=== PATIENT | male | born 1955 | race Caucasian/White ===

== ENCOUNTER 2017-01-13 04:24 | Emergency (ER) | payer OTHER ==
[2017-01-13] MEDS ORDERED: Silver Sulfadiazine 1% 400gm* 1 APPLIC JAR TOPICAL ONE (04:39)
[2017-01-13] MEDS ORDERED: Metoprolol Tartrate IV* 1 MG/ML 5 ML VIAL IV ONE (04:57)
[2017-01-13] MEDS ORDERED: Morphine INJ* 4 MG/ML 1 ML SYRINGE IV ONE (04:57)
[2017-01-13 05:00] LABS: Hematocrit 49 % (42-52); Mean Corpuscular HGB Conc 33 g/dl (31-36); Mean Corpuscular Hemoglobin 31 pg (27-31); Mean Corpuscular Volume 94 fL (80-94); Mean Platelet Volume 8 um3 (7.4-10.4); Red Blood Count 5.14 10^6/ul (4.0-5.4); Red Cell Distribution Width 14 % (10.5-15); White Blood Count 9.5 10^3/ul (3.5-10.8)
[2017-01-13 05:13] LABS: Albumin 4.5 g/dL (3.2-5.2); Calcium 10.4 mg/dL (8.6-10.3); EGFR African American 120.3 (>60); EGFR Non-African American 93.5 (>60); Globulin 3.2 g/dL (2-4); Magnesium 2.1 mg/dL (1.9-2.7); Potassium 3.8 mmol/L (3.5-5.0); Total Bilirubin 0.6 mg/dL (0.2-1.0); Total Protein 7.7 g/dL (6.4-8.9)
[2017-01-13] MEDS ORDERED: NS 0.9% 1000 ML* 1,000 ML IV ONE (05:18)
[2017-01-13 05:47] LABS: TSH (Thyroid Stimulating Horm) 2.11 mcIU/mL (0.34-5.60)
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
[2017-01-13 06:35] VITALS: BP 131/102
== END 2017-01-13 07:01 | disposition short-term general hospital (02) ==
LOC: ED 04:24
DX: T24.011A Burn of unspecified degree of right thigh, initial encounter (principal); T31.11 Burns involving 10-19% of body surface with 10-19% third degree burns; R06.02 Shortness of breath; F17.210 Nicotine dependence, cigarettes, uncomplicated; X08.8XXA Exposure to other specified smoke, fire and flames, initial encounter; Y93.9 Activity, unspecified; Y92.9 Unspecified place or not applicable
CPT/HCPCS: 36415; 80053; 83605; 83735; 84443; 84484; 85025; 85610; 93005; 96374; 96375; 99283; A9270-GY; J2270

== ENCOUNTER 2019-08-07 13:33 | Emergency (ER) | payer OTHER ==
[2019-08-07] MEDS ORDERED: NS 0.9% 1000 ML** 1,000 ML IV ONE (14:07)
[2019-08-07 14:27] LABS: ABS Lymphocytes 0.4 10^3/ul (1.0-4.8); ABS Monocytes 0.4 10^3/ul (0-0.8); ABS Neutrophils 5.8 10^3/ul (1.5-7.7); Hematocrit 44 % (42-52); Hemoglobin 14.9 g/dL (14.0-18.0); Lymphocyte % 5.4 %; Mean Corpuscular HGB Conc 34 g/dL (31-36); Mean Corpuscular Hemoglobin 32 pg (27-31); Mean Corpuscular Volume 92 fL (80-94); Platelet Count 154 10^3/uL (150-450); Red Blood Count 4.72 10^6 /uL (4.18-5.48); Red Cell Distribution Width 13 % (10-15); White Blood Count 6.6 10^3/uL (3.5-10.8)
[2019-08-07 14:46] LABS: Troponin I 0.01 ng/mL (<0.03)
[2019-08-07 14:50] LABS: Albumin 3.8 g/dL (3.2-5.2); Albumin/Globulin Ratio 1.3 (1-3); BUN/Creatinine Ratio 20.9 (8-20); Calcium 8.5 mg/dL (8.6-10.3); EGFR African American 109.4 (>60); EGFR Non-African American 90.4 (>60); Total Bilirubin 0.4 mg/dL (0.2-1.0); Total Protein 6.8 g/dL (6.4-8.9)
--- NOTE | 2019-08-07 15:19 | ED ---
Influenza-Like Illness - HPI Summary HPI Summary: Patient is a 63 y/o M presenting to [facility] with complaints of cough, congestion, rib pain with cough, sore throat, N/V, fever, and a syncopal episode. He states that a persistent cough onset 08/03/19. Patient states that he then began to experience congestion at his chest and also reports pain at his ribs with cough. He reports that he has not been able to keep food or liquids down secondary to N/V. Patient went to [facility] for evaluation earlier today 08/07/19. He was told that he had a fever and had a syncopal episode while there. Staff were able to catch the patient. He denies [place]. Patient has not had a flu shot yet. No Hx of HTN or diabetes noted. Patient states that he takes a daily vitamin. He received anti-emetic and Tylenol at [facility]. NKDA reported. He is a former smoker and notes occasional marijuana usage. - History of Current Complaint Chief Complaint: EDFluSymptoms Time Seen by Provider: 08/07/19 13:55 Hx Obtained From: Patient Onset/Duration: Lasting Days, Still Present Severity: Mild Associated Signs & Symptoms: Fever, Cough, Sore Throat, Vomiting - Allergy/Home Medications Allergies/Adverse Reactions: Allergies Allergy/AdvReac Type Severity Reaction Status Date / Time No Known Allergies Allergy Verified 03/28/14 08:43 Home Medications: Home Medications Aspirin EC TAB* [Ecotrin EC Low Dose 81 MG*] 81 mg PO DAILY 08/07/19 [History Confirmed 08/07/19] Cyanocobalamin TAB* [Vitamin B12 TAB*] 500 mcg PO DAILY 08/07/19 [History Confirmed 08/07/19] Multivitamins/Minerals TAB* [Theragran/minerals TAB*] 1 tab PO DAILY 08/07/19 [ History Confirmed 08/07/19] PMH/Surg Hx/FS Hx/Imm Hx Endocrine/Hematology History: Denies: Hx Diabetes, Hx Thyroid Disease Cardiovascular History: Denies: Hx Hypertension Respiratory History: Denies: Hx Asthma, Hx Chronic Obstructive Pulmonary Disease (COPD) GI History: Denies: Hx Ulcer - Surgical History Surgery Procedure, Year, and Place: hernia 4 yrs ago. ACL long ago ~1997 Infectious Disease History: No Infectious Disease History: Denies: Hx Hepatitis, Hx Human Immunodeficiency Virus (HIV), History Other Infectious Disease, Traveled Outside the [place] in Last 30 Days - Family History Known Family History: Positive: Cardiac Disease, Other - [place]. - Social History Alcohol Use: Weekly Alcohol Amount: 5x Hx Substance Use: No Substance Use Type: Reports: Marijuana Substance Use Comment - Amount & Last Used: 5x Hx Tobacco Use: Yes Smoking Status (MU): Former Smoker Amount Used/How Often: 1 ppd Review of Systems Positive: Fever - reported Positive: Sore Throat Respiratory: Other - positive - congestion Positive: Cough Positive: Vomiting, Nausea Musculoskeletal: Other - positive - rib pain with cough Positive: Syncope. Negative: Headache All Other Systems Reviewed And Are Negative: Yes Physical Exam - Summary Physical Exam Summary: Constitutional: Well-developed, Well-nourished, Alert. (-) Distressed Skin: Warm, Dry HENT: Normocephalic; Atraumatic Eyes: Conjunctiva normal Neck: Musculoskeletal ROM normal neck. (-) JVD, (-) Stridor, (-) Tracheal deviation Cardio: Rhythm regular, rate normal, Heart sounds normal; Intact distal pulses; Radial pulses are 2+ and symmetric. (-) Murmur Pulmonary/Chest wall: 92% o2 saturation on 2 liters of oxygen. Effort normal. (- ) Respiratory distress, (-) Wheezes, (-) Rales Abd: Soft, (-) tenderness, (-) Distension, (-) Guarding, (-) Rebound Musculoskeletal: (-) Edema Lymph: (-) Cervical adenopathy Neuro: Alert, Oriented x3 Psych: Mood and affect Normal Triage Information Reviewed: Yes Vital Signs On Initial Exam: Initial Vitals Pulse Resp Pulse Ox 95 17 90 08/07/19 13:49 08/07/19 13:49 08/07/19 13:49 Vital Signs Reviewed: Yes Procedures - Sedation Patient Received Moderate/Deep Sedation with Procedure: No Diagnostics - Vital Signs Vital Signs Temp Pulse Resp BP Pulse Ox 08/07/19 15:00 88 16 92 08/07/19 14:50 89 21 115/70 92 08/07/19 14:19 89 17 124/71 93 08/07/19 14:00 95 19 91 08/07/19 13:50 99.1 F 100 14 127/71 92 08/07/19 13:49 95 17 90 - Laboratory Lab Results: Lab Results 08/07/19 08/07/19 Range/Units 14:15 14:15 WBC 6.6 (3.5-10.8) 10^3/uL RBC 4.72 (4.18-5.48) 10^6 /uL Hgb 14.9 (14.0-18.0) g/dL Hct 44 (42-52) % MCV 92 (80-94) fL MCH 32 H (27-31) pg MCHC 34 (31-36) g/dL RDW 13 (10-15) % Plt Count 154 (150-450) 10^3/uL MPV 8.0 (7.4-10.4) fL Neut % (Auto) 88.6 % Lymph % (Auto) 5.4 % [place] % (Auto) 5.8 % Eos % (Auto) 0.0 % Baso % (Auto) 0.2 % Absolute Neuts (auto) 5.8 (1.5-7.7) 10^3/ul Absolute Lymphs (auto) 0.4 L (1.0-4.8) 10^3/ul Absolute Monos (auto) 0.4 (0-0.8) 10^3/ul Absolute Eos (auto) 0.0 (0-0.6) 10^3/ul Absolute Basos (auto) 0.0 (0-0.2) 10^3/ul Absolute Nucleated RBC 0.0 10^3/ul Nucleated RBC % 0.0 Sodium 131 L (135-145) mmol/L Potassium 4.0 (3.5-5.0) mmol/L Chloride 101 (101-111) mmol/L Carbon Dioxide 23 (22-32) mmol/L Anion Gap 7 (2-11) mmol/L BUN 18 (6-24) mg/dL Creatinine 0.86 (0.67-1.17) mg/dL Est GFR ( Amer) 109.4 (>60) Est GFR (Non-Af Amer) 90.4 (>60) BUN/Creatinine Ratio 20.9 H (8-20) Glucose 117 H (70-100) mg/dL Calcium 8.5 L (8.6-10.3) mg/dL Total Bilirubin 0.40 (0.2-1.0) mg/dL AST 19 (13-39) U/L ALT 14 (7-52) U/L Alkaline Phosphatase 48 (34-104) U/L Troponin I 0.01 (<0.03) ng/mL Total Protein 6.8 (6.4-8.9) g/dL Albumin 3.8 (3.2-5.2) g/dL Globulin 3.0 (2-4) g/dL Albumin/Globulin Ratio 1.3 (1-3) Result Diagrams: 08/07/19 14:15 08/07/19 14:15 Lab Statement: Any lab studies that have been ordered have been reviewed, and results considered in the medical decision making process. - Radiology CXR Radiology Interpretation Completed By: Radiologist Summary of Radiographic Findings: IMPRESSION: No active cardiopulmonary disease is noted. This report was reviewed by ED physician. - EKG 1414 Cardiac Rate: NL - rate of 90 BPM EKG Rhythm: Sinus Rhythm Summary of EKG Findings: EKG showed NSR with rate of 90 BPM, no STEMI. ED physician has reviewed and interpreted this EKG. Re-Evaluation - Re-Evaluation First Eval Re-Evaluation Time: 15:14 Comment: Patient has an o2 saturation range of 92-94% on RA. He states that this is his baseline. Patient to be discharged to home. Flu Symptom Course/Dx - Course Course Of Treatment: Patient is here with 4 days of flulike symptoms. Patient has not been drinking due to a lack of appetite. Patient went to an urgent care where he stood up and then syncopized. Patient was febrile there and given Tylenol and Zofran with improvement in his nausea. Patient has no abdominal tenderness and is overall well-appearing. Patient had a negative chest x-ray. Given patient's syncopal episode, an EKG and troponin were ordered which were both negative for any acute abnormality. Patient is out of the window for influenza so a swab was not sent. Patient will be treated with symptomatic treatment - Diagnoses Provider Diagnoses: Influenza, Syncope, Cough Discharge ED - Sign-Out/Discharge Documenting (check all that apply): Patient Departure - discharge - Discharge Plan Condition: Stable Disposition: HOME Prescriptions: Ondansetron ODT TAB* [Zofran 4 MG Odt TAB*] 4 mg PO Q8H PRN #12 tab.odt PRN Reason: Vomiting Patient Education Materials: Syncope (ED), Influenza (ED), Acute Cough (ED) Forms: *Work Release Referrals: Wojciech Winston MD [Primary Care Provider] - Additional Instructions: Please follow up with your primary care physician within three days. Take Motrin and Tylenol for pain and fever, stay hydrated with pedialyte. Use your prescribed nausea medicine as needed. Return to ED for worsened trouble breathing, high fevers, or any other concerning symptoms. Return to work Tuesday. - Billing Disposition and Condition Condition: STABLE Disposition: Home - Attestation Statements Document Initiated by Daniel: Yes Documenting Scribe: ROSE HAYDEN Provider For Whom Daniel is Documenting (Include Credential): PAULO MORRISON MD Scribe Attestation: ROSE Anderson, scribed for PAULO MORRISON MD on 08/07/19 at 1738. Scribe Documentation Reviewed: Yes Provider Attestation: The documentation as recorded by the ROSE kline accurately reflects the service I personally performed and the decisions made by me, PAULO MORRISON MD Status of Scribe Document: Viewed
[2019-08-07 15:48] VITALS: BP 124/77
== END 2019-08-07 15:46 | disposition home or self-care (01) ==
LOC: ED 13:33
DX: J10.1 Influenza due to other identified influenza virus with other respiratory manifestations (principal); R55 Syncope and collapse; R05 Cough; R11.10 Vomiting, unspecified; Z79.82 Long term (current) use of aspirin; Z87.891 Personal history of nicotine dependence
CPT/HCPCS: 36415; 71046; 80053; 84484; 85025; 93005; 99283

== ENCOUNTER 2020-10-24 17:29 | Inpatient (IN) ==
[2020-10-24 20:53] LABS: ABS Basophils 0.1 10^3/ul (0-0.2); ABS Eosinophils 0.2 10^3/ul (0-0.6); ABS Lymphocytes 1.7 10^3/ul (1.0-4.8); ABS Monocytes 0.8 10^3/ul (0-0.8); Eosinophil % 3.2 %; Hematocrit 41 % (42-52); Hemoglobin 13.6 g/dL (14.0-18.0); Lymphocyte % 21.7 %; Mean Corpuscular HGB Conc 33 g/dL (31-36); Mean Corpuscular Hemoglobin 30 pg (27-31); Mean Corpuscular Volume 91 fL (80-94); Mean Platelet Volume 7.4 fL (7.4-10.4); Nucleated Red Blood Cells % 0.1; Platelet Count 293 10^3/uL (150-450); Red Blood Count 4.54 10^6 /uL (4.18-5.48); Red Cell Distribution Width 14 % (10-15); White Blood Count 7.8 10^3/uL (3.5-10.8)
[2020-10-24 21:10] LABS: Albumin 4.2 g/dL (3.2-5.2); Albumin/Globulin Ratio 1.2 (1-3); Calcium 10.4 mg/dL (8.6-10.3); EGFR African American 120.3 (>60); EGFR Non-African American 99.4 (>60); Globulin 3.4 g/dL (2-4); Potassium 3.7 mmol/L (3.5-5.0); Total Bilirubin 0.3 mg/dL (0.2-1.0); Total Protein 7.6 g/dL (6.4-8.9)
[2020-10-24] MEDS ORDERED: Iohexol 350 (CONTRAST) 500 ML MDV IV ONE (21:38)
[2020-10-25 03:17] LABS: Troponin I 0.01 ng/mL (<0.03)
[2020-10-25] MEDS: Enoxaparin 40 MG/0.4 ML SYR SUBCUT SCH (05:58)
[2020-10-25] MEDS: Aspirin EC 81 mg TAB.EC (enteric coated) PO SCH (09:01)
[2020-10-25 10:20] LABS: HDL Cholesterol 47.2 mg/dL
[2020-10-25] MEDS ORDERED: Albuterol HFA INHALER 8 gm MDI INH PRN (12:18)
[2020-10-25 13:44] LABS: C Reactive Protein 47.29 mg/L (<8.01)
[2020-10-25] MEDS ORDERED: Calcium Carb (TUMS) 500 mg CHEW TAB PO PRN (22:29)
[2020-10-25] MEDS ORDERED: Pantoprazole VIAL 40 MG VIAL IV ONE (22:30)
[2020-10-26] MEDS: Enoxaparin 40 MG/0.4 ML SYR SUBCUT SCH (06:04)
[2020-10-26] MEDS: Aspirin EC 81 mg TAB.EC (enteric coated) PO SCH (08:05)
[2020-10-26 15:28] VITALS: BP 127/81
== END 2020-10-26 15:50 | disposition home or self-care (01) | DRG 181 ==
LOC: ED 17:29 → MEDTELE 10-25 00:50
PROVIDERS: ADMIT Internal Medicine Interventional Cardiology; ATTEND Internal Medicine

== ENCOUNTER 2021-01-21 11:59 | Inpatient (IN) ==
[2021-01-21] MEDS ORDERED: Magnesium Sulfate IV 1GM/100ML 1 GM/100 ML BAG IV ONE (12:09)
[2021-01-21] MEDS ORDERED: Lactated Ringers 1000 ml BAG 1,000 ML IV ONE (12:09)
[2021-01-21] MEDS ORDERED: Diltiazem IV push/loading dose 5 MG/ML 5 ML vial (25 mg) IV SLOW PU ONE ×2 (12:09→12:38)
[2021-01-21 12:34] LABS: ABS Basophils 0.1 10^3/ul (0-0.2); ABS Eosinophils 0.1 10^3/ul (0-0.6); ABS Lymphocytes 1.5 10^3/ul (1.0-4.8); ABS Monocytes 0.8 10^3/ul (0-0.8); ABS Neutrophils 6.4 10^3/ul (1.5-7.7); Eosinophil % 1.6 %; Hematocrit 39 % (42-52); Hemoglobin 12.6 g/dL (14.0-18.0); Lymphocyte % 16.5 %; Mean Corpuscular HGB Conc 33 g/dL (31-36); Mean Corpuscular Hemoglobin 28 pg (27-31); Mean Corpuscular Volume 87 fL (80-94); Mean Platelet Volume 7.9 fL (7.4-10.4); Nucleated Red Blood Cells % 0.1; Platelet Count 304 10^3/uL (150-450); Red Blood Count 4.45 10^6 /uL (4.18-5.48); Red Cell Distribution Width 15 % (10-15); White Blood Count 8.8 10^3/uL (3.5-10.8)
[2021-01-21 12:48] LABS: Calcium 9.6 mg/dL (8.6-10.3); EGFR African American 119.9 (>60); EGFR Non-African American 99.1 (>60); Magnesium 2.1 mg/dL (1.9-2.7); Total Protein 7.4 g/dL (6.4-8.9)
[2021-01-21 12:49] LABS: Albumin/Globulin Ratio 1.2 (1-3); Globulin 3.4 g/dL (2-4); Total Bilirubin 0.3 mg/dL (0.2-1.0)
[2021-01-21] MEDS ORDERED: Iohexol 350 (CONTRAST) 500 ML MDV IV ONE (13:07)
[2021-01-21] MEDS ORDERED: Diltiazem (ADVAN VIAL) 100 MG/100 ML ADDV.BAG IV SCH (14:00)
[2021-01-21] MEDS ORDERED: Metoprolol Tartrate 5 mg VIAL 5 ml VIAL (1 mg/ml) IV ONE ×3 (15:07→16:41)
[2021-01-21] MEDS ORDERED: Albuterol HFA INHALER 8 gm MDI INH PRN (17:39)
[2021-01-21] MEDS ORDERED: Metoprolol Tartrate 5 mg VIAL 5 ml VIAL (1 mg/ml) IV PRN (17:41)
[2021-01-21] MEDS ORDERED: Ondansetron 4 mg VIAL 2 MG/ML 2 ml VIAL IV PRN (17:42)
[2021-01-21] MEDS ORDERED: Digoxin IV 0.5 MG/2 ML AMP (0.25 MG/ML) IV SLOW PU ONE (20:20)
[2021-01-22] MEDS ORDERED: Metoprolol Tartrate 5 mg VIAL 5 ml VIAL (1 mg/ml) IV ONE (02:04)
[2021-01-22 06:21] LABS: ABS Basophils 0.1 10^3/ul (0-0.2); ABS Eosinophils 0.2 10^3/ul (0-0.6); ABS Lymphocytes 1.5 10^3/ul (1.0-4.8); ABS Monocytes 0.6 10^3/ul (0-0.8); ABS Neutrophils 3.9 10^3/ul (1.5-7.7); Eosinophil % 3.1 %; Hematocrit 36 % (42-52); Hemoglobin 11.8 g/dL (14.0-18.0); Lymphocyte % 23.7 %; Mean Corpuscular HGB Conc 33 g/dL (31-36); Mean Corpuscular Hemoglobin 29 pg (27-31); Mean Corpuscular Volume 86 fL (80-94); Platelet Count 251 10^3/uL (150-450); Red Blood Count 4.15 10^6 /uL (4.18-5.48); Red Cell Distribution Width 14 % (10-15); White Blood Count 6.2 10^3/uL (3.5-10.8)
[2021-01-22 06:36] LABS: EGFR African American 137.8 (>60); EGFR Non-African American 113.9 (>60); Potassium 4.1 mmol/L (3.5-5.0)
[2021-01-22] MEDS ORDERED: Digoxin IV 0.5 MG/2 ML AMP (0.25 MG/ML) IV SLOW PU ONE ×2 (07:20→14:00)
[2021-01-22 13:35] LABS: Magnesium 2.2 mg/dL (1.9-2.7)
[2021-01-22] MEDS ORDERED: Amiodarone 150 mg IVPREMIX 150 MG/100 ML BAG IV ONE (18:04)
[2021-01-22] MEDS ORDERED: Amiodarone 360 MG IVPREMIX 360 MG/200 ML BAG IV ONE (18:15)
[2021-01-22] MEDS: Magic MouthWash1-BEN/MAAL/LIDO 180 ML BTL SWISH SPIT SCH ×2 (18:18→21:08)
[2021-01-23] MEDS: Amiodarone 360 MG IVPREMIX 360 MG/200 ML BAG IV SCH ×2 (01:00→09:30)
[2021-01-23 05:36] LABS: ABS Basophils 0.1 10^3/ul (0-0.2); ABS Eosinophils 0.2 10^3/ul (0-0.6); ABS Monocytes 0.6 10^3/ul (0-0.8); ABS Neutrophils 3.8 10^3/ul (1.5-7.7); Eosinophil % 3.6 %; Hematocrit 34 % (42-52); Hemoglobin 11.1 g/dL (14.0-18.0); Lymphocyte % 18.3 %; Mean Corpuscular HGB Conc 32 g/dL (31-36); Mean Corpuscular Hemoglobin 28 pg (27-31); Mean Corpuscular Volume 87 fL (80-94); Mean Platelet Volume 7.8 fL (7.4-10.4); Platelet Count 246 10^3/uL (150-450); Red Blood Count 3.94 10^6 /uL (4.18-5.48); Red Cell Distribution Width 15 % (10-15); White Blood Count 5.7 10^3/uL (3.5-10.8)
[2021-01-23 05:54] LABS: Calcium 8.8 mg/dL (8.6-10.3); EGFR African American 135.6 (>60); EGFR Non-African American 112.1 (>60); Magnesium 2.1 mg/dL (1.9-2.7); Potassium 4.2 mmol/L (3.5-5.0)
[2021-01-23 08:08] LABS: Phosphorus 3.8 mg/dL (2.5-5.0)
[2021-01-23] MEDS ORDERED: Perflutren Lipid Microsphere 3 ML VIAL ONE (08:55)
[2021-01-23] MEDS: Magic MouthWash1-BEN/MAAL/LIDO 180 ML BTL SWISH SPIT SCH ×4 (09:43→20:16)
[2021-01-23] MEDS: Amiodarone 400 mg TAB PO SCH ×2 (10:02→20:13)
[2021-01-24 06:29] LABS: Calcium 9.1 mg/dL (8.6-10.3); EGFR Non-African American 119.8 (>60); Magnesium 2.1 mg/dL (1.9-2.7); Phosphorus 3.7 mg/dL (2.5-5.0); Potassium 4.1 mmol/L (3.5-5.0)
[2021-01-24] MEDS: Amiodarone 400 mg TAB PO SCH (08:52)
[2021-01-24] MEDS: Magic MouthWash1-BEN/MAAL/LIDO 180 ML BTL SWISH SPIT SCH ×2 (08:56→13:03)
[2021-01-24 13:26] VITALS: BP 105/62
== END 2021-01-24 16:05 | disposition home or self-care (01) | DRG 308 ==
LOC: ED 11:59 → MEDTELE 18:55 → ICU 01-22 18:06 → MEDTELE 01-23 18:27
PROVIDERS: ADMIT Student in an Organized Health Care Education/Training Program; ATTEND Student in an Organized Health Care Education/Training Program

== ENCOUNTER 2021-02-10 11:50 | Observation (INO) ==
[2021-02-10 16:39] LABS: ABS Lymphocytes 0.8 10^3/ul (1.0-4.8); ABS Monocytes 0.2 10^3/ul (0-0.8); ABS Neutrophils 2.1 10^3/ul (1.5-7.7); Eosinophil % 1.5 %; Hematocrit 40 % (42-52); Hemoglobin 12.8 g/dL (14.0-18.0); Lymphocyte % 26.5 %; Mean Corpuscular HGB Conc 32 g/dL (31-36); Mean Corpuscular Hemoglobin 28 pg (27-31); Mean Corpuscular Volume 85 fL (80-94); Mean Platelet Volume 8.4 fL (7.4-10.4); Nucleated Red Blood Cells % 0.1; Platelet Count 295 10^3/uL (150-450); Red Blood Count 4.65 10^6 /uL (4.18-5.48); Red Cell Distribution Width 15 % (10-15); White Blood Count 3.1 10^3/uL (3.5-10.8)
[2021-02-10 16:52] LABS: Activated Partial Thrombo Time 31.8 seconds (26.0-38.0); INR 1.14 (0.86-1.15)
[2021-02-10 17:03] LABS: Albumin 3.8 g/dL (3.2-5.2); Albumin/Globulin Ratio 1.2 (1-3); Calcium 9.7 mg/dL (8.6-10.3); EGFR African American 81.8 (>60); EGFR Non-African American 67.6 (>60); Globulin 3.1 g/dL (2-4); Magnesium 1.7 mg/dL (1.9-2.7); Potassium 3.3 mmol/L (3.5-5.0); Total Bilirubin 0.3 mg/dL (0.2-1.0); Total Protein 6.9 g/dL (6.4-8.9)
[2021-02-10 17:04] LABS: Troponin I 0.01 ng/mL (<0.03)
[2021-02-10 17:09] LABS: Digoxin 0.4 ng/ml (0.8-2.0)
[2021-02-10] MEDS ORDERED: Iohexol 350 (CONTRAST) 500 ML MDV IV ONE (17:15)
[2021-02-10 17:19] LABS: T4, Total 11.51 mcg/dL (6.09-12.23)
[2021-02-10] MEDS ORDERED: Magnesium Sulfate IV 1GM/100ML 1 GM/100 ML BAG IV ONE (17:22)
[2021-02-10] MEDS ORDERED: Potassium Chlor 20 meq TAB.ER PO ONE (17:22)
[2021-02-10 17:23] LABS: TSH Ultra Thyroid Stim Horm 3.04 mcIU/mL (0.34-5.60)
[2021-02-10] MEDS ORDERED: Digoxin IV 0.5 MG/2 ML AMP (0.25 MG/ML) IV SLOW PU ONE (20:56)
[2021-02-10] MEDS ORDERED: Albuterol HFA INHALER 8 gm MDI INH PRN (21:54)
[2021-02-11 06:52] LABS: Calcium 9.2 mg/dL (8.6-10.3); EGFR African American 91.3 (>60); EGFR Non-African American 75.5 (>60); Potassium 3.7 mmol/L (3.5-5.0)
[2021-02-11] MEDS ORDERED: Amiodarone 400 mg TAB PO SCH (10:00)
[2021-02-11 13:14] LABS: Magnesium 1.9 mg/dL (1.9-2.7)
[2021-02-11 15:51] VITALS: BP 118/65
[2021-02-11] MEDS ORDERED: Potassium Chlor 20 meq TAB.ER PO SCH (16:00)
[2021-02-11] MEDS ORDERED: Amiodarone 400 mg TAB PO ONE (18:03)
[2021-02-12] MEDS ORDERED: Amiodarone 400 mg TAB PO SCH (09:00)
== END 2021-02-11 19:00 | disposition home or self-care (01) ==
LOC: MEDTELE 11:50 → ED 11:50 → MEDTELE 02-11 01:16
PROVIDERS: ADMIT Internal Medicine; ATTEND Internal Medicine